=== PATIENT | male | born 1950 | race Caucasian/White ===

== ENCOUNTER 2017-08-15 10:14 | Inpatient (IN) | payer MEDICARE ==
[~2017-08-15] VITALS: Ht 175.3 cm; Wt 79.0 kg
[2017-08-15] VITALS (13 sets, daily range): BP systolic 101–118; BP diastolic 51–64; PULSE 48–146; RESP 18–22; TEMP 97.5–98.9; O2SAT 93–100
[2017-08-15] MEDS ORDERED: MORPHINE SULFATE 4 MG/ML INJ IV PUSH ONE (10:30)
[2017-08-15] MEDS ORDERED: SODIUM CHLORIDE 0.9% FLUSH 10 ML FLUSH IVF PRN (10:30)
[2017-08-15] MEDS ORDERED: ASPIRIN 81 MG CHEW TAB PO ONE (10:30)
[2017-08-15] MEDS ORDERED: SODIUM CHLORID 0.9% 500 ML INJ 500 ML IV ONE (10:30)
[2017-08-15 10:31] LABS: AUTOMATED NEUTROPHIL # 3.3 TH/MM3 (1.8-7.7); BASOPHIL # 0.1 TH/MM3 (0-0.2); EOSINOPHIL # 0.1 TH/MM3 (0-0.4); EOSINOPHIL % 1.9 % (0.0-4.0); HEMATOCRIT 47.8 % (39.0-51.0); HEMOGLOBIN 16.5 GM/DL (13.0-17.0); LYMPH % 40.6 % (9.0-44.0); MEAN CELL VOLUME 96.2 FL (80.0-100.0); MEAN CORPUSCULAR HEMOGLOBIN 33.3 PG (27.0-34.0); MEAN CORPUSCULAR HGB CONC 34.6 % (32.0-36.0); MEAN PLATELET VOLUME 8.8 FL (7.0-11.0); MONO % 11.9 % (0.0-8.0); MONOCYTE # 0.9 TH/MM3 (0-0.9); NEUT % 44.6 % (16.0-70.0); PLATELET COUNT 210 TH/MM3 (150-450); RED BLOOD COUNT 4.97 MIL/MM3 (4.50-5.90); RED CELL DISTRIBUTION WIDTH 13.2 % (11.6-17.2); WHITE BLOOD COUNT 7.4 TH/MM3 (4.0-11.0)
[2017-08-15 10:40] LABS: CHLORIDE 105 MEQ/L (98-107); SODIUM (NA) 140 MEQ/L (136-145)
[2017-08-15 10:42] LABS: CALCIUM 9.3 MG/DL (8.5-10.1)
[2017-08-15 10:43] LABS: BICARBONATE 28.7 MEQ/L (21.0-32.0); BLOOD UREA NITROGEN 18 MG/DL (7-18); GLUCOSE,RANDOM 156 MG/DL (74-106)
[2017-08-15 10:44] LABS: INTERNATIONAL NORMALIZED RATIO 1.1 RATIO; PROTHROMBIN TIME - PATIENT 11.3 SEC (9.8-11.6)
[2017-08-15 10:46] LABS: GLOMERULAR FILTRATION RATE 47 ML/MIN (>89)
[2017-08-15 10:51] LABS: TROPONIN I LESS THAN 0.02 NG/ML (0.02-0.05)
[2017-08-15] MEDS ORDERED: TAMS5CAP PO (10:57)
[2017-08-15] MEDS ORDERED: LORazepam 0.5 MG TAB PO ONE (11:15)
--- NOTE | 2017-08-15 11:16 | RADRPT ---
EXAM DATE: 08/15/2017 11:12 AM EDT AGE/SEX: 67 years / Male INDICATIONS: Chest pain. CLINICAL DATA: This is the patient's initial encounter. Patient reports that signs and symptoms have been present for 1 day and indicates a pain score of 10/10. MEDICAL/SURGICAL HISTORY: None. Appendectomy. colectomy COMPARISON: No prior [facility] exams available for comparison. FINDINGS: A single AP view of the chest demonstrates the lungs to be symmetrically aerated without evidence of mass, infiltrate or effusion. Convex right atrial border. Otherwise, cardiomegaly stone contours are unremarkable. Osseous structures are intact. CONCLUSION: 1. Questionable right atrial enlargement. 2. Otherwise, no acute abnormality. Electronically signed by: Edgar St MD 08/15/2017 11:15 AM EDT
[2017-08-15] MEDS ORDERED: HEPARIN SODIUM - IV 10,000 UNITS/10 ML VIAL IV PUSH STA (11:33)
[2017-08-15] MEDS ORDERED: MIDAZOLAM HCL 2 MG/2 ML VIAL ONE (11:36)
[2017-08-15] MEDS ORDERED: HEPARIN-NS/PF INJ 1,000 ML ONE (11:36)
[2017-08-15] MEDS ORDERED: HEPARIN SODIUM - IV 10,000 UNITS/10 ML VIAL ONE (11:37)
--- NOTE | 2017-08-15 11:43 | PD ---
HPI Chief Complaint: Chest Pain Time Seen by Provider: 10:23 Travel History International Travel<30 days: No Contact w/Intl Traveler<30days: No Traveled to known affect area: No History of Present Illness HPI Patient is a 67-year-old male who comes in complaining of left-sided chest pain radiating to his left arm that started just prior to arrival. He says that it started while he was playing pickle ball at the gym. He says he has never experienced this before. He says it feels like it is difficult to take a deep breath. He is sweating, and is unsure if this is related to the pain or the exercise he was doing. He has had some nausea, no vomiting. He says he was feeling in his normal state of health prior to going to the gym. He has no heart problems that he knows of. He says he only takes Flomax and sees his doctor regularly. Severity is moderate to severe. PFSH Past Medical History Medical History: Denies Significant Hx Past Surgical History Appendectomy: Yes Social History Alcohol Use: No Tobacco Use: No Substance Use: No Allergies-Medications (Allergen,Severity, Reaction): Coded Allergies: No Known Allergies (Unverified , 07/19/15) Reported Meds & Prescriptions Reported Meds & Active Scripts Active Reported Flomax (Tamsulosin HCl) 0.4 Mg Cap 0.4 Mg PO DAILY Review of Systems Except as stated in HPI: all other systems reviewed are Neg General / Constitutional: No: Fever, Chills HENT: No: Headaches, Lightheadedness Cardiovascular: Positive: Chest Pain or Discomfort Respiratory: Positive: Shortness of Breath Gastrointestinal: Positive: Nausea, No: Vomiting, Abdominal Pain Musculoskeletal: No: Myalgias, Edema Skin: No Rash, No Change in Pigmentation Neurologic: No: Syncope Physical Exam Narrative GENERAL: Awake and alert, in obvious discomfort. SKIN: Diaphoresis HEAD: Atraumatic. Normocephalic. EYES: Pupils equal and round. No scleral icterus. ENT: Mucous membranes pink and moist. NECK: Trachea midline. No JVD. CARDIOVASCULAR: Regular rate and rhythm. No murmur appreciated. RESPIRATORY: No accessory muscle use. Clear to auscultation. Breath sounds equal bilaterally. GASTROINTESTINAL: Abdomen soft, non-tender, nondistended. MUSCULOSKELETAL: No obvious deformities. No clubbing. No cyanosis. No edema. NEUROLOGICAL: Awake and alert. No obvious cranial nerve deficits. Motor grossly within normal limits. Normal speech. PSYCHIATRIC: Appropriate mood and affect; insight and judgment normal. Data Data Last Documented VS Vital Signs Date Time Temp Pulse Resp B/P (MAP) Pulse Ox O2 Delivery O2 Flow Rate FiO2 08/15/17 10:46 18 08/15/17 10:20 97.5 48 118/64 (82) 100 08/15/17 10:20 Nasal Cannula 2.00 Orders Orders Electrocardiogram (08/15/17 10:23) Basic Metabolic Panel (Bmp) (08/15/17 10:23) Ckmb (Isoenzyme) Profile (08/15/17 10:23) Complete Blood Count With Diff (08/15/17 10:23) Prothrombin Time / Inr (Pt) (08/15/17 10:23) Act Partial Throm Time (Ptt) (08/15/17 10:23) Troponin I (08/15/17 10:23) Chest, Single Ap (08/15/17 10:23) Ecg Monitoring (08/15/17 10:23) Bilateral Bp Monitoring (08/15/17 10:23) Iv Access Insert/Monitor (08/15/17 10:23) Oximetry (08/15/17 10:23) Oxygen Administration (08/15/17 10:23) Aspirin Chew (Aspirin Chew) (08/15/17 10:30) Morphine Inj (Morphine Inj) (08/15/17 10:30) Sodium Chloride 0.9% Flush (Ns Flush) (08/15/17 10:30) Sodium Chlorid 0.9% 500 Ml Inj (Ns 500 M (08/15/17 10:30) CKMB (08/15/17 10:25) CKMB% (08/15/17 10:25) Electrocardiogram (08/15/17 ) Lorazepam (Ativan) (08/15/17 11:15) Heparin Inj (Heparin Inj) (08/15/17 11:33) Cardiac Catheterization (08/15/17 ) Labs Laboratory Tests Test 08/15/17 10:25 White Blood Count 7.4 TH/MM3 Red Blood Count 4.97 MIL/MM3 Hemoglobin 16.5 GM/DL Hematocrit 47.8 % Mean Corpuscular Volume 96.2 FL Mean Corpuscular Hemoglobin 33.3 PG Mean Corpuscular Hemoglobin Concent 34.6 % Red Cell Distribution Width 13.2 % Platelet Count 210 TH/MM3 Mean Platelet Volume 8.8 FL Neutrophils (%) (Auto) 44.6 % Lymphocytes (%) (Auto) 40.6 % Monocytes (%) (Auto) 11.9 % Eosinophils (%) (Auto) 1.9 % Basophils (%) (Auto) 1.0 % Neutrophils # (Auto) 3.3 TH/MM3 Lymphocytes # (Auto) 3.0 TH/MM3 Monocytes # (Auto) 0.9 TH/MM3 Eosinophils # (Auto) 0.1 TH/MM3 Basophils # (Auto) 0.1 TH/MM3 CBC Comment DIFF FINAL Differential Comment Prothrombin Time 11.3 SEC Prothromb Time International Ratio 1.1 RATIO Activated Partial Thromboplast Time 23.2 SEC Blood Urea Nitrogen 18 MG/DL Creatinine 1.50 MG/DL Random Glucose 156 MG/DL Calcium Level 9.3 MG/DL Sodium Level 140 MEQ/L Potassium Level 4.2 MEQ/L Chloride Level 105 MEQ/L Carbon Dioxide Level 28.7 MEQ/L Anion Gap 6 MEQ/L Estimat Glomerular Filtration Rate 47 ML/MIN Total Creatine Kinase 155 U/L Creatine Kinase MB 2.1 NG/ML Troponin I LESS THAN 0.02 NG/ML MDM Medical Decision Making Medical Screen Exam Complete: Yes Emergency Medical Condition: Yes Medical Record Reviewed: Yes Interpretation(s) ECG shows 1mm ST elevation in I, aVL. 1mm ST depression in V2 and slight depression in V3. Repeat ECG 1 hour later shows 2mm ST elevation in lead I, 1mm elevation in aVL, depression in V2 and V3 Differential Diagnosis ACS vs NSTEMI vs STEMI Narrative Course Patient is a 67-year-old male who comes to the ED complaining of chest pain and shortness of breath. On arrival, patient roomed in the emergency department, IV established, patient connected to the math and physics instructor. Initial ECG does not meet criteria for STEMI. However, it is concerning for cardiac process. Patient given aspirin. Labs sent. First troponin is negative. Patient given 2 mg of morphine as well as a bolus of IV fluids. His pressure has remained low, so no nitro or further pain medication was given. Repeat ECG performed 1 hour later shows slight worsening of the ST elevation in lead I. Patient continues to have chest pain, reports feeling worse. I spoke with Dr. White of cardiology who would like the patient stimulated and transferred to the main hospital. Patient was given heparin and transferred as a STEMI alert. Patient was very anxious. He was given a small dose of Ativan PO to help. Diagnosis Primary Impression: Chest pain Qualified Codes: R07.9 - Chest pain, unspecified Admitting Information Admitting Physician Requests: Admit Rupal Penny MD August 15, 2017 11:43
[2017-08-15] MEDS ORDERED: CLOPIDOGREL 300 MG TAB ONE (12:50)
[2017-08-15] MEDS ORDERED: TIROFIBAN INFUSION INJ 0 ML IV ONE (12:50)
[2017-08-15] MEDS ORDERED: ATROPINE SULFATE 1 MG/10 ML SYRINGE ONE ×2 (12:53→13:07)
[2017-08-15] MEDS ORDERED: SODIUM NITROPRUSSIDE 50 MG/2 ML VIAL ONE (12:55)
[2017-08-15] MEDS ORDERED: PRASUGREL 10 MG TAB ONE (12:57)
[2017-08-15] MEDS ORDERED: TIROFIBAN INFUSION INJ 250 ML IV ONE (12:58)
[2017-08-15] MEDS ORDERED: TIROFIBAN INFUSION INJ 250 ML IV SCH (13:19)
--- NOTE | 2017-08-15 13:27 | CATHPROC ---
[employer] HIS Report Study Information Study Number Admission Scheduled Start Study Start [id number] Aug 15 2017 10:14AM 08/15/2017 Aug 15 2017 11:45AM [place] [facility] Cardiac Catheterization Admit Source Facility Department Transfer in from another acute care facility [facility] - [facility] Manager Physician and Clinical Staff Initial Keyshawn Quarles Food Service Associate Roman Sanford RN Food Service Associate Rohan XIE, Rebel RecordSimona Brumfield,RT(R) Mayra Dowling,RT(R) (BS) Procedures Performed Procedure Location (Site) Vessel Name Coronary Angiograms LCA Left Coronary Coronary Angiograms RCA Right Coronary Drug Eluting Inflatio CIRC Mid CIRC L Heart Cath LV Gram-hand inj. LV LV Ventricle PTCA CIRC Mid CIRC Wire insertion Fem Art (right) Femoral Art Equipment Time Radiotelephone Operator Description Size Mfg Part Number Used/Scraped [id number] 12:50 [employer] WIRE, ASAHI PROWATER 180CM 180CM Used *[id number] TRANSDUCER, TRUWAVE [id number] 11:47 DERAS BANUELOS * Used W/STOCKCOCK *[id number] *[id number] *[id number] *[id number] 11:47 MEDLINE INDUSTRIES PACK, CCL CUSTOM * Used *[id number] 11:47 [employer] PACER PEN, SKIN DUAL W/ RULER * Used *[id number] 12:51 MEDTRONIC BALLOON, 2.5 X 12MM EUPHORA 12MM Used *[id number] 12:53 MEDTRONIC STENT, 3.0 18 INTEGRITY 3.0 18 Used *[id number] 12:53 [employer]Pub MEDICAL 30 SIMON INDEFLATOR Used *[id number] 11:47 [employer] MEDICAL WIRE, 3MMJ .035 180CM 180CM Used *[id number] 11:47 NAMIC MANIFOLD, 4 PORT * Used *[id number] 11:47 NYCOMED OMNIPAQUE, 350 MG, 150ML 150ML [id number] Used [id number] 11:47 ALMANZAR MEDICAL BLANKET,WARM AIR CCL * Used *[id number] 11:47 TERUMO MEDICAL SHEATH, FR4 TERUMO (10CM) FR 4 Used *[id number] 12:48 TERUMO MEDICAL SHEATH, FR6 TERUMO (10CM) FR 6 Used *[id number] Equipment Model, Serial, Lot Number and Expiration Data Description Model Number Serial Number Lot Number Expiration Date STENT, 3.0 18 INTEGRITY [id number] 12-17-2018 History: Current Medications Medication Dosage/Unit Route Frequency Last Date/Time Taken ASA EFFIENT Angiomax History: Allergies Allergy Reaction No Known Allergies History: Symptoms/Diagnosis Selection Items Chest pain History: Stress Tests Stress or Imaging Studies Performed No History: Other Current Smoker No Labs Hgb (g/dl) Hct (%) WBC (l/cumm) Platelets (thousands) 11.60-17.00 35.00-51.00 4.00-11.00 150.00-450.00 16.5 47.8 7.4 210 Glucose (mg/dl) BUN (mg/dl) Creatinine (mg/dl) BUN:Creatinine (1:x) 74.00-106.00 7.00-18.00 0.50-1.30 10.00-20.00 156 18 1.5 12 Troponin I (ng/ml) CPK (u/l) CPK-MB (ng/ML) 0.02-0.05 26.00-308.00 0.50-3.60 0.02 155 Not Drawn Medication Medication Total Dose (Bolus/Oral) Medication Total Dosage/Unit 1% XYLOCAINE 20 mL ANGIOMAX BOLUS 42 mL ATROPINE 0.6 mg EFFIENT 60 mg FENTANYL 25 mcg HEPARIN 1500 units VERSED 1 mg Medications (Bolus/Oral) Medication Time Given Dosage/Unit Administered By Reason VERSED 08/15/2017 12:35:38 PM 1 mg Roman Sanford 1 mg VERSED given in lab by Roman Sanford RN via Peripheral IV. FENTANYL 08/15/2017 12:36:42 PM 25 mcg Roman Sanford 25 mcg FENTANYL given in lab by Roman Sanford RN via Peripheral IV. 1% XYLOCAINE 08/15/2017 12:38:45 PM 20 mL Keyshawn White 20 mL 1% XYLOCAINE given in lab by Keyshawn White in Right Groin via Subcutaneous. HEPARIN 08/15/2017 12:48:06 PM 1500 units Keyshawn White 1500 units HEPARIN given in lab by Keyshawn White via Peripheral IV. ATROPINE 08/15/2017 12:51:54 PM 0.6 mg Rebel Madrigal RN 0.6 mg ATROPINE given in lab by Rebel Madrigal RN via Peripheral IV. EFFIENT 08/15/2017 1:01:43 PM 60 mg Rebel Madrigal RN 60 mg EFFIENT given in lab by Rebel Madrigal RN via Oral. ANGIOMAX BOLUS 08/15/2017 1:03:49 PM 42 mL Roman Sanford 42 mL ANGIOMAX BOLUS given in lab by Roman Sanford RN via Peripheral IV. Medication (Drip) Medication Time Given Dosage/Unit Concentration/Unit Diluent (ml) Solutio n ANGIOMAX DRIP 08/15/2017 1:06:20 PM 0.214 mg/kg/hr 250 mg 50 NaCl .9 0.214 mg/kg/hr ANGIOMAX DRIP given in lab by Roman Sanford RN via Peripheral IV. Pump/Drip Flow = 7.5 ml/hr using NaCl .9 with a concentration of 250 mg in 50 ml. IV Bolus 08/15/2017 12:59:27 PM 30 mL (Bolus) 500 NaCl .9 30 mL (Bolus) IV Bolus given in lab by Rebel Madrigal RN via Peripheral IV. Using NaCl .9. IV Solutions 08/15/2017 12:20:52 PM 50 mL (IV) NaCl .9 Patient arrived on IV Solutions in Left Antecubital via Peripheral IV. Pump/Drip Flow using NaCl .9. IV Solutions 08/15/2017 12:31:41 PM 0 mL (IV) 500 NaCl .9 IV Solutions given in lab by Roman Sanford RN via Peripheral IV. Pump/Drip Flow = 20 ml/hr using NaCl .9. NIPRIDE 08/15/2017 12:57:27 PM 100 mcg 100 mcg NIPRIDE given in lab by Keyshawn White via Intra-coronary. NIPRIDE 08/15/2017 1:01:12 PM 100 mcg 100 mcg NIPRIDE given in lab by Keyshawn White via Intra-coronary. Initial Case Assessment Cardiovascular HR NIBP Chest Pain 54 112/73 5 Edema Present Skin color Skin None Normal Warm Dry Circulatory - Right Pulses Dorsalis Pedis Femoral 1 3 Scale (0,1,2,3,4,d) Circulatory - Left Pulses Dorsalis Pedis Femoral 3 3 Scale (0,1,2,3,4,d) Neurological State Oriented to time-place- Alert Moves all extremities person Final Case Assessment Cardiovascular HR Rhythm NIBP Chest Pain 108 reg 106/66 1 Edema Present Skin color Skin None Normal Warm Circulatory - Right Pulses Dorsalis Pedis Femoral 2 3 Scale (0,1,2,3,4,d) Circulatory - Left Pulses Dorsalis Pedis Femoral 3 3 Scale (0,1,2,3,4,d) Circulatory - Lower Extremities Color Lower Right Color Lower Left Normal Normal Neurological State Oriented to time-place- Alert Moves all extremities person Respiration - General Respiration Rate SpO2 (%) O2 (lpm) (B/min) 20 98 3 Chronological Log Time Study Chronological Log 11:44:43 [facility] notified that [facility] Manager is ready. 12:17:05 Patient arrived via Bed. 12:17:09 MD paged 12:18:43 MD responded 12:20:12 Patient Name, D.O.B, / Armband Verified By R.N. 12:20:20 Patient has been NPO for Less than 6Hrs. 12:20:21 Skin Breakdown- bruise left lateral femur 12:20:37 Patient Warmer Placed on the Table. 12:20:38 Adal Prominences Protected 12:20:40 A # 20 IV was noted in the Antecubital (left). Grade = 0 12:20:47 A # 20 IV was noted in the Antecubital (right). Grade = 0 12:20:52 Patient arrived on IV Solutions in Left Antecubital via Peripheral IV. Pump/Drip Flow using NaCl .9. Assessment: Initial Case, HR=54 BPM, UYVW=718/73 mmhg, Chest Pain=5, Edema=None, Color=Normal, Skin = Warm, Dry 12:21:06 Right Pulses: Raymon Ped=1, Femoral=3 Left Pulses: Raymon Ped=3, Femoral=3 Neurological: State=Alert, Ox3, PRASAD 12:21:10 Reference ECG taken Vitals capture started with the following parameters, Patient=Adult, Interval=5 min, Initial Pr cdbmuv=441 mmHg, 12:21:23 Deflation Rate=5 mmHg, Cuff placed on Right Arm 12:21:59 HR=52 bpm, XUZK=321/73 mmhg, JnY6=274.0 %, Resp=17 B/min 12:26:15 Pressure channel 1 zeroed. 12:26:56 HR=52 bpm, YALE=854/73 mmhg, QtQ2=666 %, Resp=25 B/min, Pain=5, Soy=10, Barajas=2 12:30:49 pt arrived on 3 liters of oxygen 12:31:41 IV Solutions given in lab by Roman Sanford RN via Peripheral IV. Pump/Drip Flow = 20 ml/hr using NaCl .9. 12:32:01 HR=50 bpm, NXPL=367/66 mmhg, GlC2=069 %, Resp=19 B/min, Pain=5, Soy=10, Barajas=2 12:34:15 MD arrived. 12:35:38 1 mg VERSED given in lab by Roman Sanford RN via Peripheral IV. Time Out. Correct patient, correct procedure, correct physician, labs, allergies, and equipment verified with radiographer cardiac catheterization 12:36:28 team present. Fire risk assesment completed (see hard stop sheet for coding). Time Out Conc urred by MD and individual staff in procedure. 12:36:42 25 mcg FENTANYL given in lab by Roman Sanford RN via Peripheral IV. 12:36:56 HR=50 bpm, HGRS=384/71 mmhg, SpO2=99 %, Resp=21 B/min, Pain=5, Soy=10, Barajas=2 12:38:21 4800 units of heparin in er 12:38:35 Case Start 12:38:36 Verbal Stimulation=2 Physical Stimulation=2 Airway=2 Respiration=2 TOTAL=8. (0=absent, 1=li mited, 2=present) 12:38:45 20 mL 1% XYLOCAINE given in lab by Keyshawn White in Right Groin via Subcutaneous. 12:41:44 Access site was Right Femoral Artery. 12:41:49 A wire was inserted via Fem Art (right). 12:41:50 A SHEATH, FR4 TERUMO (10CM) FR 4 was advanced into the Fem Art (right) using the Percutaneo us technique. 12:42:01 HR=51 bpm, SXQU=703/69 mmhg, SpO2=98.0 %, Resp=41 B/min, Pain=5, Soy=10, Barajas=2 12:42:16 Activated Clotting Time Drawn A JR 4.0 INFINITI CATHETER FR 4 was advanced over a wire. OMNIPAQUE, 350 MG, 150ML 150ML was us ed for 12:43:03 injections. Recorded Pressure: LV, HR=54, Condition=Condition 1 12:43:31 (Left Ventricle) LV 122/31/62 12:43:41 The LV was manually injected with 10 cc's and visualized. OMNIPAQUE, 350 MG, 150ML 150ML us ed. Recorded Pressure: LV, Ao, HR=57, Condition=Condition 1 12:43:48 (Left Ventricle) LV 106/16/23, (Aorta) Ao 107/51/81 12:44:45 The RCA was injected and visualized at various angles. OMNIPAQUE, 350 MG, 150ML 150ML used . 12:44:54 Catheter was removed A JL 4.0 INFINITI CATHETER FR 4 was advanced over a wire. OMNIPAQUE, 350 MG, 150ML 150ML was us ed for 12:44:55 injections. Recorded Pressure: Ao, HR=59, Condition=Condition 1 12:45:49 (Aorta) Ao 114/63/86 12:46:03 The LCA was injected and visualized at various angles. OMNIPAQUE, 350 MG, 150ML 150ML used . 12:46:09 ACT (Normal Range 90-180) = 208 12:46:58 HR=53 bpm, KWNK=447/68 mmhg, SpO2=97 %, Resp=21 B/min, Pain=5, Soy=10, Barajas=2 12:47:13 Catheter was removed A SHEATH, FR6 TERUMO (10CM) FR 6 was exchanged in the Fem Art (right). This was necessary in or david to 12:47:35 accomodate a larger catheter. 12:48:06 1500 units HEPARIN given in lab by Keyshawn White via Peripheral IV. A XB 3.5 GUIDE CATHETER FR 6 was advanced over a wire. OMNIPAQUE, 350 MG, 150ML 150ML was used for 12:48:59 injections. 12:49:18 A WIRE, ASAHI PROWATER 180CM 180CM was inserted via Fem Art (right). 12:50:45 Interventional wire has crossed the lesion 12:50:54 A BALLOON, 2.5 X 12MM EUPHORA 12MM was inserted over WIRE, ASAHI PROWATER 180CM 180CM via t he CIRC Mid. 12:51:54 0.6 mg ATROPINE given in lab by Rebel Madrigal RN via Peripheral IV. 12:52:01 HR=53 bpm, SZLA=464/75 mmhg, SpO2=99.0 %, Resp=23 B/min, Pain=5, Soy=10, Barajas=2 A BALLOON, 2.5 X 12MM EUPHORA 12MM over a WIRE, ASAHI PROWATER 180CM 180CM in the CIRC Mid was inflated 12:52:22 using a 30 SIMON INDEFLATOR at 8 simon for 10 sec. 12:52:44 Balloon Removed. A STENT, 3.0 18 INTEGRITY 3.0 18 was advanced through a XB 3.5 GUIDE CATHETER FR 6 over a WIRE, ASAHI 12:53:46 PROWATER 180CM 180CM. A STENT, 3.0 18 INTEGRITY 3.0 18 was deployed using a 30 SIMON INDEFLATOR at 12 atmospheres for 1 7 seconds in 12:54:05 the CIRC Mid. 12:55:15 The LCA was injected and visualized at various angles. OMNIPAQUE, 350 MG, 150ML 150ML used . 12:55:45 Delivery device removed 12:57:01 HR=94 bpm, OFIM=478/82 mmhg, UlJ2=659.0 %, Resp=19 B/min, Pain=5, Soy=10, Barajas=2 12:57:27 100 mcg NIPRIDE given in lab by Keyshawn White via Intra-coronary. 12:59:27 30 mL (Bolus) IV Bolus given in lab by Rebel Madrigal RN via Peripheral IV. Using NaCl .9. 13:01:12 100 mcg NIPRIDE given in lab by Keyshawn White via Intra-coronary. 13:01:43 60 mg EFFIENT given in lab by Rebel Madrigal RN via Oral. 13:02:06 WU=582 bpm, NIBP=90/50 mmhg, SpO2=99.0 %, Resp=13 B/min, Pain=5, Soy=10, Barajas=2 13:02:56 The LCA was injected and visualized at various angles. OMNIPAQUE, 350 MG, 150ML 150ML used . 13:03:09 Wire removed 13:03:21 The LCA was injected and visualized at various angles. OMNIPAQUE, 350 MG, 150ML 150ML used . 13:03:49 42 mL ANGIOMAX BOLUS given in lab by Roman Sanford RN via Peripheral IV. 13:04:33 Case End Assessment: Final Case, QA=912 BPM, Rhythm=reg, MLHT=881/66 mmhg, Chest Pain=1, Edema=None, Color=Normal, Skin = Warm Right Pulses: Raymon Ped=2, Femoral=3 Left Pulses: Raymon Ped=3, Femoral=3 13:05:38 Lower Right Extremities: Color=Normal Lower Left Extremities: Color=Normal Neurological: State=Alert, Ox3, PRASAD Respiration: Resp=20 B/min, SpO2=98 %, O2=3 lpm 0.214 mg/kg/hr ANGIOMAX DRIP given in lab by Roman Sanford RN via Peripheral IV. Pump/Drip Flow = 7.5 ml/hr using 13:06:20 NaCl .9 with a concentration of 250 mg in 50 ml. 13:06:57 KJ=207 bpm, VPAS=005/66 mmhg, SpO2=97.0 %, Resp=20 B/min, Pain=5, Soy=10, Barajas=2 13:07:27 Catheter(s) removed without difficulty 13:07:28 In the Fem Art (right) the SHEATH, FR6 TERUMO (10CM) FR [address] by Mayra Aguilera RT(R) (BS). 13:07:40 Sterile dressing applied to site 13:07:41 No case complications noted. 13:07:42 Cine recording checked. 13:07:44 Bedside Report will be given. 13:07:45 Implantable Device card placed in patient's chart. 13:07:47 Verbal Stimulation=2 Physical Stimulation=2 Airway=2 Respiration=2 TOTAL=8. (0=absent, 1=l imited, 2=present) 13:08:02 A Left Heart Cath was performed. 13:08:08 Clinical correlaton risk stratification. 13:12:00 VX=710 bpm, OOIL=536/71 mmhg, EdD4=202 %, Resp=24 B/min, Pain=5, Soy=10, Barajas=2 13:13:46 pt complains of NO chest pain 13:17:03 HR=97 bpm, GIDO=057/68 mmhg, SpO2=95.0 %, Resp=23 B/min, Pain=5, Soy=10, Barajas=2 13:22:02 HR=94 bpm, MDUB=837/69 mmhg, DqD5=297 %, Resp=24 B/min, Pain=5, Soy=10, Barajas=2 13:26:52 Vitals capture stopped. End Study - Contrast Media Used In Study Contrast Total Opened (mL) Total Used (mL) Total Wasted (mL) Omnipaque 110 110 0 End Study - Maximum Contrast Load Max Contrast Load (mL) 584.4 End Study - Radiation Exposure Fluoro Time (minutes) 4.4 End Study - Patient Disposition Complications Transferred To Interventional Outcome No Regular Bed successful
[2017-08-15] MEDS ORDERED: MISC INFORMATION XX ONE (13:30)
[2017-08-15] MEDS ORDERED: PRASUGREL 10 MG TAB PO ONE (13:30)
[2017-08-15] MEDS ORDERED: SODIUM CHLORIDE 0.9% FLUSH 10 ML FLUSH IV FLUSH PRN (13:30)
--- NOTE | 2017-08-15 13:34 | MB ---
cc: Keyshawn White MD DATE: 08/15/2017 HISTORY: Brian is a very pleasant 67-year-old gentleman with no significant past medical history. He developed chest pain at 10 a.m. this morning, was found to have ST elevation in the high lateral leads. A STEMI Alert was called after discussion with myself and the ER physician. 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 He otherwise denies any fevers, chills, cough, GI or bleeding, PND, orthopnea, syncope or dizziness. PAST MEDICAL HISTORY: As per History Of Present Illness. PAST SURGICAL HISTORY: He is status post appendectomy. SOCIAL HISTORY: Denies tobacco or alcohol use. ALLERGIES: NONE. MEDICATIONS: Flomax 0.4 mg daily at home. In the hospital, he has received aspirin and heparin bolus. PHYSICAL EXAMINATION: VITAL SIGNS: Blood pressure 101/54, pulse 52 ranging between 40 and 52, respiratory rate 20, saturations 100% on 2 liters nasal cannula, temperature 97.5. GENERAL: He is alert and oriented x 3, in no acute distress. NECK: Supple. No JVD. No bruit. CARDIOVASCULAR: S1, S2. No murmurs, rubs or gallops. LUNGS: Clear to auscultation bilaterally. ABDOMEN: Soft, nontender, nondistended with positive bowel sounds. EXTREMITIES: No lower extremity edema. LABORATORY DATA: White count 7.4, hemoglobin 16.5, hematocrit 47.8, platelet count 210. INR is 1.1. Sodium 140, potassium 4.2, chloride 105, bicarbonate 28.7, BUN 18, creatinine 1.50, glucose 156. Troponin is less than 0.02. IMAGING STUDIES: Chest x-ray: Questionable right atrial enlargement, otherwise no acute abnormality. EKG is not in the computer. Hard copy shows [address] elevation consistent with injury pattern in lead I, aVL with reciprocal changes in V1, V2, V3 and aVF. Sinus bradycardia at 52 beats per minute. DIAGNOSES: He is following diagnoses: 1. ST elevation myocardial infarction. 2. Bradycardia. 3. Acute renal failure. 3. Hyperglycemia. DISCUSSION: The patient has received aspirin and heparin bolus in the ER. We have called a STEMI Alert , for emergency catheterization, PCI. MD JALEN Hernandez/DAMEON , 01:18 PM , 01:33 PM
--- NOTE | 2017-08-15 13:42 | MR ---
cc: Keyshawn White MD DATE: 08/15/2017 PROCEDURE PERFORMED: Left heart catheterization, left ventriculography, coronary angiography, PCI bare metal stent of the mid to distal left circumflex vessel. INDICATIONS FOR PROCEDURE: STEMI, coronary artery disease. PROCEDURAL STATEMENT: The patient was brought to the cardiac catheterization laboratory, prepped and draped in usual sterile fashion. 10 mL 1% lidocaine was used to locally anesthetize the right common femoral artery. A 4-Guamanian sheath placed in right common femoral artery. ACT was checked at the initiation of the procedure. It was 208. 4-Guamanian, JR4 and JL4 catheters were used to perform left and right coronary angiography, left ventriculography. FINDINGS: LV pressure is 106/16-18. EF 60%. Right coronary artery is dominant. The proximal reference vessel diameter is 3 mm. It tapers down to about 2.25-2.5 mm in the mid segment with relative stenosis up to 50% angiographically. Distal right has a 70 and 50% sequential lesion. The left main coronary artery has no significant disease angiographically. It is heavily calcified fluoroscopically. The ostial proximal left circumflex vessel and proximal LAD are heavily calcified. There is a subtotal occlusion in the mid to distal left circumflex vessel with BRENDEN 2 flow beyond. The first obtuse marginal vessel is very small 0.25 mm in diameter. No significant disease angiographically. Second obtuse marginal vessel is a medium to large sized vessel 2.75-3.0 mm reference vessel diameter. A long 50 to perhaps 60% stenosis in the proximal mid segment. Also, the ostial left circ appears to have possibly up to 50-60% disease. It is difficult to tell due to the heavy calcification at that segment. The LAD has heavy calcification in the ostial proximal segment with up to 40-50% disease angiographically. The mid LAD has a 95% stenosis, but 90% stenosis at a bifurcation with a medium size diagonal vessel which itself has a 75% ostial stenosis. Diagonal vessel reference vessel diameter is 2.25 mm. LAD is transapical. Note, the left circumflex vessel in the BASHIR caudal view appears to possibly have a 70% ostial stenosis; however, the vessel is foreshortened in this view. A 6-Guamanian sheath exchanged for the 4-Guamanian sheath. An additional 1500 units of heparin was given. ACT 309. 6-Guamanian XB 3.5 guide, 0.014 Prowater guidewire were used to cross the mid to distal left circumflex vessel stenosis. The lesion was predilated with a 2.5 x 12 Compliant Euphora balloon with one inflation 6 atmospheres for 20 seconds. This resulted in reperfusion and better imaging of the vessel. Therefore, I was able to place a 3.0 x 18 Integrity stent without perfusion beyond the stent so I could see where the bifurcation was. Deployed the stent with one inflation to 12 atmospheres for 25 seconds. Stenosis went from 99% with BRENDEN 2 flow to 0% with BRENDEN 3 flow. The patient still had chest pain. We gave a total of 200 mcg of intracoronary Nipride. At the end of the procedure, the patient was completely chest pain free. CONCLUSIONS: 1. STEMI, culprit subtotally occluded mid to distal left circumflex vessel. 2. Otherwise, moderate to severe 3-vessel coronary artery disease in a right dominant system. 3. Normal LV systolic function, ejection fraction 65%. 4. Successful PCI bare metal stent of the mid to distal circumflex vessel from 99% with BRENDEN 2 flow to 0% with BRENDEN 3 flow. 5. Recommend Effient 60 mg p.o. load and then 10 mg daily for 12-15 months, aspirin 162 mg daily, Aggrastat drip per protocol. We will check fasting lipids ALT and CK per guidelines. Hold Coreg due to bradycardia. Intermittent bradycardia into the 40s periprocedurally. The patient's creatinine is 1.5, therefore it is indeterminate whether this is acute or chronic renal insufficiency. We will hold ROSENDO inhibitor until we see trends in his creatinine. Keyshawn White MD AWBhavik/AMIE , 01:14 PM , 01:41 PM
[2017-08-15] MEDS ORDERED: IOHEXOL 350 MG/ML 100 ML BTL (for Cath Lab) OTHER ONE (15:08)
[2017-08-15] MEDS ORDERED: IOHEXOL 350 MG/ML 50 ML BTL (for Cath Lab) OTHER ONE (15:08)
[2017-08-15] MEDS: MAGNESIUM SULFAT 1 GM PREMIX 100 ML x2 bags IV SCH ×2 (16:48→18:03)
[2017-08-15 18:52] LABS: ALBUMIN 3.5 GM/DL (3.4-5.0); AST (GOT) 214 U/L (15-37); BICARBONATE 23.7 MEQ/L (21.0-32.0); BLOOD UREA NITROGEN 17 MG/DL (7-18); CALCIUM 8.3 MG/DL (8.5-10.1); CHLORIDE 107 MEQ/L (98-107); CREATININE 1.08 MG/DL (0.60-1.30); GLOMERULAR FILTRATION RATE 68 ML/MIN (>89); GLUCOSE,RANDOM 132 MG/DL (74-106); SODIUM (NA) 139 MEQ/L (136-145)
[2017-08-15 18:53] LABS: ALT (GPT) 42 U/L (12-78)
[2017-08-15 18:55] LABS: ALKALINE PHOSPHATASE 77 U/L (45-117); TOTAL BILIRUBIN ADULT 1.1 MG/DL (0.2-1.0)
[2017-08-15] MEDS ORDERED: SODIUM CHLORIDE 0.9% FLUSH 10 ML FLUSH IV FLUSH SCH (21:00)
[2017-08-16] VITALS (14 sets, daily range): BP systolic 92–121; BP diastolic 54–71; PULSE 48–74; RESP 18–22; TEMP 97.9–99.3; O2SAT 93
[2017-08-16 03:33] LABS: AUTOMATED NEUTROPHIL # 7.3 TH/MM3 (1.8-7.7); BASOPHIL % 0.4 % (0.0-2.0); EOSINOPHIL % 0.3 % (0.0-4.0); HEMATOCRIT 42.6 % (39.0-51.0); HEMOGLOBIN 14.4 GM/DL (13.0-17.0); LYMPH % 17.6 % (9.0-44.0); LYMPHOCYTE # 1.8 TH/MM3 (1.0-4.8); MEAN CELL VOLUME 96.3 FL (80.0-100.0); MEAN CORPUSCULAR HEMOGLOBIN 32.6 PG (27.0-34.0); MEAN CORPUSCULAR HGB CONC 33.9 % (32.0-36.0); MONO % 10.8 % (0.0-8.0); MONOCYTE # 1.1 TH/MM3 (0-0.9); NEUT % 70.9 % (16.0-70.0); PLATELET COUNT 153 TH/MM3 (150-450); RED BLOOD COUNT 4.43 MIL/MM3 (4.50-5.90); RED CELL DISTRIBUTION WIDTH 13.5 % (11.6-17.2); WHITE BLOOD COUNT 10.4 TH/MM3 (4.0-11.0)
[2017-08-16 03:58] LABS: ALBUMIN 3.3 GM/DL (3.4-5.0); BICARBONATE 26.4 MEQ/L (21.0-32.0); CALCIUM 8.3 MG/DL (8.5-10.1); CREATININE 1.03 MG/DL (0.60-1.30); DIRECT BILIRUBIN ADULT 0.3 MG/DL (0.0-0.2)
[2017-08-16 04:11] LABS: CHOLESTEROL/ HDL RATIO 2.82 RATIO; HDL CHOLESTEROL 42.9 MG/DL (40.0-60.0); INDIRECT BILIRUBIN 0.8 MG/DL (0.0-0.8); TOTAL BILIRUBIN ADULT 1.1 MG/DL (0.2-1.0)
--- NOTE | 2017-08-16 07:19 | EKG ---
Date Performed: 08/15/2017 Time Performed: 11:24:23 PTAGE: 67 years EKG: SINUS BRADYCARDIA ST DEVIATION AND MODERATE T-WAVE ABNORMALITY, CONSIDER ANTERIOR ISCHEMIA ABNORMAL ECG INTERPRETATION BASED ON A DEFAULT AGE OF 40 YEARS PREVIOUS TRACING : 08/15/2017 10.17 DOCTOR: Michael Appiah Interpretating Date/Time 08/16/2017 07:17:09
--- NOTE | 2017-08-16 07:22 | EKG ---
Date Performed: 08/15/2017 Time Performed: 10:17:24 PTAGE: 67 years EKG: SINUS BRADYCARDIA MODERATE ST DEPRESSION ABNORMAL ECG PREVIOUS TRACING : 05/25/2005 09.51 DOCTOR: Michael Appiah Interpretating Date/Time 08/16/2017 07:19:19
[2017-08-16] MEDS ORDERED: PRASUGREL 10 MG TAB PO SCH (09:00)
[2017-08-16] MEDS ORDERED: ASPIRIN 81 MG CHEW TAB PO SCH (09:00)
--- NOTE | 2017-08-16 11:13 | PD.CONS ---
[facility] By [facility] Care Physician Jeffery Corona M.D. Diagnoses: History of Present Illness 67-year-old male with history of BPH, who presented with chest pain, ST elevation myocardial infarction, acute kidney injury with creatinine up to 1.5. He is currently postop day 1 cardiac catheterization with stent placement. Patient says he is feeling better. Denies any current chest pain. Denies nausea, vomiting. Denies constipation. Says he would like to go home. Patient denies any urinary hesitancy or dysuria, however says if he misses today 's dose of Flomax he will. Review of Systems Except as stated in HPI: all other systems reviewed are Neg Past Family Social History Allergies: Coded Allergies: No Known Allergies (Unverified Allergy, Unknown, 08/15/17) Past Medical History Benign prostatic hyperplasia. Past Surgical History Basal cell cancer removal from scalp. Appendectomy. Left wrist surgery. Reported Medications Tamsulosin 0.4 mg daily. Family History Mother with diabetes mellitus, Alzheimer's. Father with HI, secondary to complications from chemotherapy for small bowel cancer. Social History Non-smoker. Nondrinker. Denies illicit drugs. Patient says he is very active playing sports about 5 hours per day. Physical Exam Vital Signs Vital Signs Date Time Temp Pulse Resp B/P (MAP) Pulse Ox O2 Delivery O2 Flow Rate FiO2 08/16/17 06:00 50 08/16/17 05:00 53 08/16/17 04:00 48 08/16/17 03:00 52 08/16/17 03:00 97.9 52 22 92/54 (67) 93 08/16/17 01:00 66 08/16/17 00:00 73 08/15/17 23:00 98.6 60 22 109/62 (78) 93 08/15/17 23:00 64 08/15/17 22:00 146 08/15/17 21:00 71 08/15/17 20:00 74 08/15/17 19:00 98.6 77 20 105/57 (73) 95 08/15/17 19:00 75 08/15/17 18:05 115 08/15/17 17:16 96 08/15/17 16:00 81 08/15/17 15:00 98.9 68 109/51 (70) 100 08/15/17 15:00 76 08/15/17 12:55 60 100/69 08/15/17 11:55 08/15/17 11:42 52 20 101/54 (70) 100 Nasal Cannula 2.00 104/52 (69) 08/15/17 11:40 48 18 101/54 (70) 100 Nasal Cannula 2.00 Physical Exam GENERAL: This is a well-nourished, well-developed patient, in no apparent distress. Alert and oriented 3. SKIN: No rashes, ecchymoses or lesions. Cool and dry. HEAD: Atraumatic. Normocephalic. No temporal or scalp tenderness. EYES: Pupils equal round and reactive. Extraocular motions intact. No scleral icterus. No injection or drainage. ENT: Nose without bleeding, purulent drainage or septal hematoma. Throat without erythema, tonsillar hypertrophy or exudate. Uvula midline. Airway patent. NECK: Trachea midline. No JVD or lymphadenopathy. Supple, nontender, no meningeal signs. CARDIOVASCULAR: Regular rate and rhythm without murmurs, gallops, or rubs. RESPIRATORY: Clear to auscultation. Breath sounds equal bilaterally. No wheezes , rales, or rhonchi. GASTROINTESTINAL: Abdomen soft, non-tender, nondistended. No hepato-splenomegaly , or palpable masses. No guarding. MUSCULOSKELETAL: Extremities without clubbing, cyanosis, or edema. No joint tenderness, effusion, or edema noted. No calf tenderness. Negative Homans sign bilaterally. NEUROLOGICAL: Awake and alert. Cranial nerves II through XII intact. Motor and sensory grossly within normal limits. Five out of 5 muscle strength in all muscle groups. Normal speech. Laboratory Laboratory Tests Test 08/15/17 18:10 08/16/17 02:42 Blood Urea Nitrogen 17 17 Creatinine 1.08 1.03 Random Glucose 132 105 Total Protein 6.0 6.0 Albumin 3.5 3.3 Calcium Level 8.3 8.3 Alkaline Phosphatase 77 77 Aspartate Amino Transf (AST/SGOT) 214 335 Alanine Aminotransferase (ALT/SGPT) 42 56 Total Bilirubin 1.1 1.1 Sodium Level 139 141 Potassium Level 4.5 3.9 Chloride Level 107 107 Carbon Dioxide Level 23.7 26.4 Anion Gap 8 8 Estimat Glomerular Filtration Rate 68 72 White Blood Count 10.4 Red Blood Count 4.43 Hemoglobin 14.4 Hematocrit 42.6 Mean Corpuscular Volume 96.3 Mean Corpuscular Hemoglobin 32.6 Mean Corpuscular Hemoglobin Concent 33.9 Red Cell Distribution Width 13.5 Platelet Count 153 Mean Platelet Volume 9.0 Neutrophils (%) (Auto) 70.9 Lymphocytes (%) (Auto) 17.6 Monocytes (%) (Auto) 10.8 Eosinophils (%) (Auto) 0.3 Basophils (%) (Auto) 0.4 Neutrophils # (Auto) 7.3 Lymphocytes # (Auto) 1.8 Monocytes # (Auto) 1.1 Eosinophils # (Auto) 0.0 Basophils # (Auto) 0.0 CBC Comment DIFF FINAL Differential Comment Direct Bilirubin 0.3 Indirect Bilirubin 0.8 Total Creatine Kinase 1816 Creatine Kinase MB 225.8 Creatine Kinase MB % 12.4 Triglycerides Level 72 Cholesterol Level 121 LDL Cholesterol 64 HDL Cholesterol 42.9 Cholesterol/HDL Ratio 2.82 Result Diagram: 08/16/17 0242 08/16/17241 Assessment and Plan Assessment and Plan //ST elevation myocardial infarction on admission. = Continue medical management as per cardiology. //Bradycardia. Management as per cardiology. //Hyperglycemia. Likely secondary to stress on admission. Glucose has resolved. Patient possibly has prediabetes. A1c is pending, however will not hold up discharge. Recommend patient follow-up with primary care as outpatient. //BPH. Will restart tamsulosin Discussed Condition With Patient, nurse Jani Ibanez MD August 16, 2017 11:12
[2017-08-16] MEDS ORDERED: TAMSULOSIN HCL 0.4 MG CAP PO SCH (11:30)
[2017-08-16] MEDS ORDERED: PRAS10TA PO (12:49)
[2017-08-16] MEDS ORDERED: ASPI81 PO (12:49)
--- NOTE | 2017-08-16 12:57 | PD.CARD.PN ---
Subjective Subjective Remarks assymptomatic in nad Objective Medications Current Medications Medications (Trade) Dose Ordered Sig/Carmelita Route Start Time Stop Time Status Last Admin (NS Flush) 2 ml UNSCH PRN IV FLUSH 08/15/17 13:30 (NS Flush) 2 ml BID IV FLUSH 08/15/17 21:00 08/15/17 21:00 (Aspirin Chew) 162 mg DAILY PO 08/16/17 09:00 08/16/17 09:24 (Effient) 10 mg DAILY PO 08/16/17 09:00 08/16/17 09:26 (Flomax) 0.4 mg DAILY PO 08/16/17 11:30 08/16/17 12:16 Vital Signs / I&O Vital Signs Date Time Temp Pulse Resp B/P (MAP) Pulse Ox O2 Delivery O2 Flow Rate FiO2 08/16/17 12:00 74 08/16/17 11:00 98.8 52 18 121/71 (88) 08/16/17 11:00 73 08/16/17 10:00 72 08/16/17 09:00 54 08/16/17 07:00 99.3 59 22 109/64 (79) 93 08/16/17 07:00 69 08/16/17 06:00 50 08/16/17 05:00 53 08/16/17 04:00 48 08/16/17 03:00 52 08/16/17 03:00 97.9 52 22 92/54 (67) 93 08/16/17 01:00 66 08/16/17 00:00 73 08/15/17 23:00 98.6 60 22 109/62 (78) 93 08/15/17 23:00 64 08/15/17 22:00 146 08/15/17 21:00 71 08/15/17 20:00 74 08/15/17 19:00 98.6 77 20 105/57 (73) 95 08/15/17 19:00 75 08/15/17 18:05 115 08/15/17 17:16 96 08/15/17 16:00 81 08/15/17 15:00 98.9 68 109/51 (70) 100 08/15/17 15:00 76 I/O 08/15/17 08/15/17 08/15/17 08/16/17 08/16/1708/16/18 07:00 15:00 23:00 07:00 15:00 23:00 Intake Total 500 ml 244.8 ml 322.4 ml Output Total 500 ml Balance 500 ml 244.8 ml -177.6 ml Intake Oral 240 ml IV Total 500 ml 244.8 ml 82.4 ml Output Urine Total 500 ml Stool Total 0 ml Physical Exam GENERAL: SKIN: Warm and dry. HEAD: Normocephalic. EYES: No scleral icterus. No injection or drainage. NECK: Supple, trachea midline. No JVD or lymphadenopathy. CARDIOVASCULAR: Regular rate and rhythm without murmurs, gallops, or rubs. RESPIRATORY: Breath sounds equal bilaterally. No accessory muscle use. GASTROINTESTINAL: Abdomen soft, non-tender, nondistended. MUSCULOSKELETAL: No cyanosis, or edema. BACK: Nontender without obvious deformity. No CVA tenderness. Laboratory Laboratory Tests Test 08/15/17 18:10 08/16/17 02:42 Blood Urea Nitrogen 17 MG/DL 17 MG/DL Creatinine 1.08 MG/DL 1.03 MG/DL Random Glucose 132 MG/DL 105 MG/DL Total Protein 6.0 GM/DL 6.0 GM/DL Albumin 3.5 GM/DL 3.3 GM/DL Calcium Level 8.3 MG/DL 8.3 MG/DL Alkaline Phosphatase 77 U/L 77 U/L Aspartate Amino Transf (AST/SGOT) 214 U/L 335 U/L Alanine Aminotransferase (ALT/SGPT) 42 U/L 56 U/L Total Bilirubin 1.1 MG/DL 1.1 MG/DL Sodium Level 139 MEQ/L 141 MEQ/L Potassium Level 4.5 MEQ/L 3.9 MEQ/L Chloride Level 107 MEQ/L 107 MEQ/L Carbon Dioxide Level 23.7 MEQ/L 26.4 MEQ/L Anion Gap 8 MEQ/L 8 MEQ/L Estimat Glomerular Filtration Rate 68 ML/MIN 72 ML/MIN White Blood Count 10.4 TH/MM3 Red Blood Count 4.43 MIL/MM3 Hemoglobin 14.4 GM/DL Hematocrit 42.6 % Mean Corpuscular Volume 96.3 FL Mean Corpuscular Hemoglobin 32.6 PG Mean Corpuscular Hemoglobin Concent 33.9 % Red Cell Distribution Width 13.5 % Platelet Count 153 TH/MM3 Mean Platelet Volume 9.0 FL Neutrophils (%) (Auto) 70.9 % Lymphocytes (%) (Auto) 17.6 % Monocytes (%) (Auto) 10.8 % Eosinophils (%) (Auto) 0.3 % Basophils (%) (Auto) 0.4 % Neutrophils # (Auto) 7.3 TH/MM3 Lymphocytes # (Auto) 1.8 TH/MM3 Monocytes # (Auto) 1.1 TH/MM3 Eosinophils # (Auto) 0.0 TH/MM3 Basophils # (Auto) 0.0 TH/MM3 CBC Comment DIFF FINAL Differential Comment Direct Bilirubin 0.3 MG/DL Indirect Bilirubin 0.8 MG/DL Total Creatine Kinase 1816 U/L Creatine Kinase MB 225.8 NG/ML Creatine Kinase MB % 12.4 % Triglycerides Level 72 MG/DL Cholesterol Level 121 MG/DL LDL Cholesterol 64 MG/DL HDL Cholesterol 42.9 MG/DL Cholesterol/HDL Ratio 2.82 RATIO Assessment and Plan Problem List: (1) STEMI (ST elevation myocardial infarction) ICD Codes: I21.3 - ST elevation (STEMI) myocardial infarction of unspecified site (2) ARF (acute renal failure) ICD Codes: N17.9 - Acute kidney failure, unspecified (3) Bradycardia ICD Codes: R00.1 - Bradycardia, unspecified (4) CAD (coronary artery disease) ICD Codes: I25.10 - Atherosclerotic heart disease of [place] coronary artery without angina pectoris (5) Elevated AST (SGOT) ICD Codes: R74.0 - Nonspecific elevation of levels of transaminase and lactic acid dehydrogenase [LDH] Assessment and Plan 1.) CAD - pod # 1 primary pci with bms lcx, ok to dc from cv standpoint on aspirin, effient; yaneli held due to arf, betablocker held due to bradycardia, statin held due to elevated lfts Keyshawn White MD August 16, 2017 12:57
[2017-08-16 15:42] LABS: HEMOGLOBIN A1C 5.3 % (4.3-6.0)
--- NOTE | 2017-08-16 19:27 | EKG ---
Date Performed: 08/16/2017 Time Performed: 03:30:20 PTAGE: 67 years EKG: Sinus bradycardia Possible inferior infarct - age undetermined Abnormal ECG Compared to PREVIOUS TRACING , the inferior ST changes have resolved. PREVIOUS TRACIN08/15/2017 11 .24 DOCTOR: Sarahi Vee Interpretating Date/Time 08/16/2017 19:25:33
== END 2017-08-16 15:05 | disposition home or self-care (01) | DRG 249 ==
LOC: PHED 10:14 → PHEDA 11:44 → HCPC 13:31
PROVIDERS: ADMIT Internal Medicine; ATTEND Internal Medicine
PROC: 02703DZ Dilation of Coronary Artery, One Artery with Intraluminal Device, Percutaneous Approach (ICD-10-PCS; principal; 2017-08-15)
PROC: B2111ZZ Fluoroscopy of Multiple Coronary Arteries using Low Osmolar Contrast (ICD-10-PCS; 2017-08-15)
PROC: 4A023N7 Measurement of Cardiac Sampling and Pressure, Left Heart, Percutaneous Approach (ICD-10-PCS; 2017-08-15)
PROC: B2151ZZ Fluoroscopy of Left Heart using Low Osmolar Contrast (ICD-10-PCS; 2017-08-15)
DX: I21.3 ST elevation (STEMI) myocardial infarction of unspecified site (principal); N17.9 Acute kidney failure, unspecified; R00.1 Bradycardia, unspecified; I25.10 Atherosclerotic heart disease of native coronary artery without angina pectoris; R74.0 Nonspecific elevation of levels of transaminase and lactic acid dehydrogenase [LDH]; R73.9 Hyperglycemia, unspecified; N40.0 Benign prostatic hyperplasia without lower urinary tract symptoms
CPT/HCPCS: 71045; 80048; 80053; 80061; 80076; 82550; 82552; 83036; 84484; 85002; 85025; 85610; 85730; 92941; 93005; 93458; 96361; 96374; 96375; 99152; 99153; C1725; C1769; C1876; C1887; C1893; J0461; J1644; J2250; J2270; J3010; J3246; J3475; J7040; Q9967